=== PATIENT | female | born 1980 | race Hispanic/Latino ===

== ENCOUNTER → 2025-07-27 13:57 | Oncology outpatient (ONC) | payer OTHER, SELFPAY ==
[2025-07-13 14:30] VITALS: BP 106/68; PULSE 63; RESP 18; TEMP 36.9; O2SAT 99
[2025-07-13] MEDS: IRON SUCROSE 200 MG in SODIUM CHLORIDE 0.9% 100 ML 220 MG IV (14:36)
[2025-07-13 15:00] VITALS: BP 105/66; PULSE 66; RESP 18; TEMP 36.3; O2SAT 98
[2025-07-18 15:00] VITALS: BP 107/62; PULSE 69; RESP 18; TEMP 36.8; O2SAT 100
[2025-07-18] MEDS: IRON SUCROSE 200 MG in SODIUM CHLORIDE 0.9% 100 ML 220 MG IV (15:08)
[2025-07-18 16:10] VITALS: BP 100/60; PULSE 62; RESP 18; TEMP 36.3; O2SAT 99
[2025-07-18 16:13] VITALS: BP 116/65; PULSE 70; RESP 18
[2025-07-20 14:44] VITALS: BP 104/46; PULSE 65; RESP 14; TEMP 36.9; O2SAT 98
[2025-07-20] MEDS: IRON SUCROSE 200 MG in SODIUM CHLORIDE 0.9% 100 ML 220 MG IV (15:10)
[2025-07-20 16:29] VITALS: BP 102/50; PULSE 65; RESP 14; TEMP 36.7; O2SAT 96
[2025-07-25 14:25] VITALS: BP 111/50; PULSE 63; RESP 16; TEMP 36.3; O2SAT 100
[2025-07-25] MEDS: IRON SUCROSE 200 MG in SODIUM CHLORIDE 0.9% 100 ML 110 MG IV (14:49)
[2025-07-25 16:20] VITALS: BP 100/53; PULSE 69; RESP 16; TEMP 36.3; O2SAT 100
[2025-07-27 14:13] VITALS: BP 109/56; PULSE 61; RESP 16; TEMP 36.1; O2SAT 98
[2025-07-27] MEDS: IRON SUCROSE 200 MG in SODIUM CHLORIDE 0.9% 100 ML 110 MG IV (14:53)
--- NOTE | 2025-07-27 15:24 | INF.NOTE ---
Patient requested to have iron infusion (5 of 5) today started at half the rate as she experienced nauseau with the infusion over 30 minutes. Fdc through she was feeling fine and requested rate to be increased. This nurse increased to 180ml/hour.
[2025-07-27 16:22] VITALS: BP 99/51; PULSE 65; RESP 16; TEMP 36.3; O2SAT 98
== END ==
PROVIDERS: PCP Naturopath; Referring Provider Naturopath; Visit Provider Naturopath
DX: D50.9 Iron deficiency anemia, unspecified (principal)
CPT/HCPCS: 96365; 96366; J1756; J7050